=== PATIENT | male | born 1980 | race Caucasian/White ===

== ENCOUNTER → 2017-04-09 | Outpatient (REF) | payer OTHER ==
[2017-04-09 11:35] LABS: BASO # 0.2 10^3/uL (0.0-0.2); BASO % 1.3 % (0.0-1.0); EOS # 0.3 10^3/uL (0.0-0.50); EOS % 2.2 % (0.0-3.0); HEMATOCRIT 46.3 % (42.0-52.0); HEMOGLOBIN 16.1 g/dl (14.0-18.0); IMMATURE GRANULOCYTE % 0.6 % (0-3.0); LYMPH # 2.5 10^3/uL (1.5-4.5); LYMPH % 17.8 % (24.0-44.0); MEAN CORPUSCULAR HEMOGLOBIN 30.9 pg (27.0-33.0); MEAN CORPUSCULAR HGB CONC 34.8 g/dl (32.0-36.5); MEAN CORPUSCULAR VOLUME 88.9 fl (80.0-96.0); MONO # 1.6 10^3/uL (0.0-0.8); MONO % 11.1 % (0.0-5.0); NEUTROPHILS # 9.5 10^3/uL (1.8-7.7); PLATELET COUNT, AUTOMATED 368 10^3/uL (150-450); RED BLOOD COUNT 5.21 10^6/uL (4.30-6.10); RED CELL DISTRIBUTION WIDTH 11.5 % (11.5-14.5); WHITE BLOOD COUNT 14.2 10^3/uL (4.0-10.0)
[2017-04-09 11:52] LABS: TOTAL 25(OH) VITAMIN D 16.1 NG/ML (30.0-100.0)
[2017-04-09 12:00] LABS: ALBUMIN 3.8 GM/DL (3.2-5.2); ALBUMIN/GLOBULIN RATIO 0.95 (1.00-1.93); ALKALINE PHOSPHATASE 68 U/L (45-117); ALT/SGPT 127 U/L (12-78); ANION GAP 7 MEQ/L (8-16); AST/SGOT 38 U/L (7-37); BLOOD UREA NITROGEN 13 MG/DL (7-18); CALCIUM LEVEL 9.6 MG/DL (8.5-10.1); CARBON DIOXIDE LEVEL 29 MEQ/L (21-32); CHLORIDE LEVEL 103 MEQ/L (98-107); CHOLESTEROL LEVEL 194 MG/DL (<200); CHOLESTEROL RISK RATIO 4.731 (<5); CREATININE FOR GFR 0.88 MG/DL (0.70-1.30); GLOMERULAR FILTRATION RATE > 60.0 (>60); GLUCOSE, FASTING 101 MG/DL (70-100); HDL CHOLESTEROL 41 MG/DL (>40); LDL CHOLESTEROL 127.2 MG/DL (<100); NON-HDL-C 153 MG/DL; POTASSIUM SERUM 3.9 MEQ/L (3.5-5.1); SODIUM LEVEL 139 MEQ/L (136-145); TOTAL PROTEIN 7.8 GM/DL (6.4-8.2); TRIGLYCERIDES LEVEL 129 MG/DL (<150)
== END ==
LOC: M LAB REF 11:18
DX: F32.1 Major depressive disorder, single episode, moderate (principal); I10 Essential (primary) hypertension; Z13.220 Encounter for screening for lipoid disorders

== ENCOUNTER → 2017-11-16 | Outpatient (REF) | payer OTHER | LOC: M LAB REF 11-19 09:30 | DX: J02.9 Acute pharyngitis, unspecified (principal) ==

== ENCOUNTER 2020-03-10 17:06 | Emergency (ER) | payer BC, OTHER ==
[~2020-03-10] VITALS: Ht 182.9 cm; Wt 128.0 kg
[2020-03-10] MEDS ORDERED: KETOROLAC TROMETHAMINE 10 MG TAB PO ONE (18:00)
[2020-03-10] MEDS ORDERED: KETO10TAB PO (18:17)
[2020-03-10 18:28] VITALS: BP 150/98
== END 2020-03-10 18:37 | disposition home or self-care (01) ==
LOC: M ED 17:06
DX: K42.9 Umbilical hernia without obstruction or gangrene (principal)

== ENCOUNTER → 2020-03-22 | Outpatient (CLI) | payer BC, OTHER ==
[~2020-03-22] MED LIST: KETO10TAB PO
[2020-03-22 14:43] LABS: BASO # 0.2 10^3/uL (0.0-0.2); EOS # 0.3 10^3/uL (0.0-0.5); EOS % 1.6 % (0.0-3.0); HEMATOCRIT 47.7 % (42.0-52.0); HEMOGLOBIN 16.1 g/dl (13.5-17.5); LYMPH # 2.1 10^3/uL (1.5-5.0); LYMPH % 12.5 % (24.0-44.0); MEAN CORPUSCULAR HEMOGLOBIN 31.6 pg (27.0-33.0); MEAN CORPUSCULAR HGB CONC 33.8 g/dl (32.0-36.5); MEAN CORPUSCULAR VOLUME 93.5 fl (80.0-96.0); MONO # 2.1 10^3/uL (0.0-0.8); NEUTROPHILS # 11.9 10^3/uL (1.5-8.5); PLATELET COUNT, AUTOMATED 362 10^3/uL (150-450)
[2020-03-22 15:25] LABS: ERYTHROCYTE SEDIMENTATION RATE 59 mm/hr (0-15)
[2020-03-22 17:20] LABS: MONO % 12.4 % (0.0-5.0); WHITE BLOOD COUNT 16.6 10^3/uL (4.0-10.0)
== END ==
LOC: M PLALAB 13:14
PROVIDERS: ATTEND Physician Assistant
DX: M70.41 Prepatellar bursitis, right knee (principal)

== ENCOUNTER → 2020-03-22 | Outpatient (REF) | payer OTHER ==
[2020-03-22 17:53] LABS: CRYSTALS, BODY FLUID NONE SEEN (NONE SEEN); SOURCE, BODY FLUID RT KNEE; SOURCE, BODY FLUID CRYSTALS RT KNEE; SYNOVIAL FLUID COLOR RED (YELLOW)
[2020-03-22 18:29] LABS: SOURCE, BODY FLUID GLUCOSE RT KNEE
[2020-03-23 07:22] LABS: BODY FLUID RHEUMATOID SCREEN NEGATIVE (NEGATIVE)
[2020-03-23 07:23] LABS: MUCIN CLOT TEST 3+ (4+)
== END ==
LOC: M LAB REF 16:55
PROVIDERS: ATTEND Physician Assistant
DX: M70.41 Prepatellar bursitis, right knee (principal)

== ENCOUNTER → 2021-06-18 | Outpatient (CLI) | payer OTHER ==
[2021-06-18 14:27] LABS: BASO # 0.2 10^3/uL (0.0-0.2); BASO % 1.6 % (0.0-1.0); EOS # 0.5 10^3/uL (0.0-0.5); EOS % 4.4 % (0.0-3.0); HEMATOCRIT 47.7 % (42.0-52.0); HEMOGLOBIN 16.8 g/dl (13.5-17.5); LYMPH # 2.5 10^3/uL (1.5-5.0); LYMPH % 22.7 % (24.0-44.0); MEAN CORPUSCULAR HEMOGLOBIN 32.1 pg (27.0-33.0); MEAN CORPUSCULAR HGB CONC 35.2 g/dl (32.0-36.5); MEAN CORPUSCULAR VOLUME 91.2 fl (80.0-96.0); MONO % 14.8 % (2.0-8.0); NEUTROPHILS % 55.9 % (36.0-66.0); PLATELET COUNT, AUTOMATED 343 10^3/uL (150-450); RED BLOOD COUNT 5.23 10^6/uL (4.30-6.10); WHITE BLOOD COUNT 10.8 10^3/uL (4.0-10.0)
[2021-06-18 14:53] LABS: ALBUMIN 3.9 GM/DL (3.2-5.2); ALT/SGPT 58 U/L (12-78); BILIRUBIN,TOTAL 0.7 MG/DL (0.2-1.0); BLOOD UREA NITROGEN 13 MG/DL (7-18); CALCIUM LEVEL 9.8 MG/DL (8.5-10.1); CARBON DIOXIDE LEVEL 29 MEQ/L (21-32); CHLORIDE LEVEL 104 MEQ/L (98-107); CHOLESTEROL LEVEL 173 MG/DL (<200); CHOLESTEROL RISK RATIO 4.325 (<5); CREATININE FOR GFR 0.84 MG/DL (0.70-1.30); GLOMERULAR FILTRATION RATE > 60.0 (>60); GLUCOSE, FASTING 118 MG/DL (70-100); HDL CHOLESTEROL 40 MG/DL (>40); LDL CHOLESTEROL 103 MG/DL (<100); NON-HDL-C 133 MG/DL; POTASSIUM SERUM 3.8 MEQ/L (3.5-5.1); SODIUM LEVEL 139 MEQ/L (136-145); TOTAL PROTEIN 7.5 GM/DL (6.4-8.2); TRIGLYCERIDES LEVEL 150 MG/DL (<150)
[2021-06-18 15:01] LABS: TOTAL 25(OH) VITAMIN D 19.1 NG/ML (30.0-100.0)
[2021-06-18 15:03] LABS: MONO # 1.6 10^3/uL (0.0-0.8)
[2021-06-18 15:35] LABS: HEMOGLOBIN A1c 5.4 %
== END ==
LOC: M PLALAB 08:53
PROVIDERS: ATTEND Physician Assistant
DX: I10 Essential (primary) hypertension (principal)

== ENCOUNTER → 2021-06-28 | Outpatient (CLI) | payer BC, OTHER | LOC: M SLEEP HO 10:46 | PROVIDERS: ATTEND Family Medicine | DX: G47.10 Hypersomnia, unspecified (principal); R94.09 Abnormal results of other function studies of central nervous system ==